=== PATIENT | female | born 1935 | race Caucasian/White ===

== ENCOUNTER 2019-07-27 04:18 | Emergency (ER) | payer MEDICARE ==
[~2019-07-27] VITALS: Ht 162.6 cm; Wt 81.6 kg
[2019-07-27] MEDS ORDERED: SODIUM CHLORIDE 0.9% 1,000 ML IV ONE (06:23)
[2019-07-27 07:14] LABS: Basophils # (auto) 0.1 10 ^3/uL (0-0.2); Basophils % (auto) 0.6 % (0.0-2.0); Eosinophils # (auto) 0 10 ^3/uL (0-0.8); Eosinophils % (auto) 0.4 % (0.0-7.0); Hematocrit 43.5 % (36.0-46.0); Hemoglobin 14.7 g/dL (12.2-16.2); Lymphocytes # (auto) 0.7 10 ^3/uL (0.4-5.4); Lymphocytes % (auto) 6.2 % (10.0-50.0); Mean Corpuscular Hemoglobin 29.1 pg (28.0-32.0); Mean Corpuscular Hgb Conc. 33.8 g/dL (32.0-36.0); Mean Corpuscular Volume 86.1 fL (80.0-100.0); Monocytes # (auto) 0.9 10 ^3/uL (0-1.3); Monocytes % (auto) 8.5 % (0.0-12.0); Neutrophils % (auto) 84.3 % (37.0-80.0); Nucleated Red Blood Cells % 0.1 %; Platelet Count (auto) 183 10^3/uL (140-450); Red Blood Cells 5.05 10^6/uL (4.0-5.20); Red Cell Distribution Width 14.2 % (11.8-14.3); White Blood Cell 10.7 10^3/uL (4.4-10.8)
[2019-07-27 07:37] LABS: Alanine Aminotransferase 58 U/L (13-56); Albumin 3.8 g/dL (3.4-5.0); Anion Gap 8 (5-15); Aspartate Aminotransferase 30 U/L (15-37); BUN/Creatinine Ratio 14.6; Blood Urea Nitrogen 14 mg/dL (7-18); Calcium 9.2 mg/dL (8.5-10.1); Carbon Dioxide 25 mmol/L (21-32); Chloride 103 mmol/L (98-107); GFR African American 71 mL/min; GFR Non-African American 59 mL/min; Glucose 197 mg/dL (74-106); Potassium 3.9 mmol/L (3.5-5.1); Sodium 136 mmol/L (136-145)
[2019-07-27 07:42] LABS: Alkaline Phosphatase 135 U/L (45-117); Bilirubin, Total 0.8 mg/dL (0.2-1.0); Total Protein 7.3 g/dL (6.4-8.2)
[2019-07-27 09:00] VITALS: BP 132/70
== END 2019-07-27 10:38 | disposition home or self-care (01) ==
LOC: EDBD 04:18 → ER 04:21
DX: K56.7 Ileus, unspecified (principal); F03.90 Unspecified dementia, unspecified severity, without behavioral disturbance, psychotic disturbance, mood disturbance, and anxiety; E11.9 Type 2 diabetes mellitus without complications; K21.9 Gastro-esophageal reflux disease without esophagitis; E78.5 Hyperlipidemia, unspecified; I10 Essential (primary) hypertension; R19.7 Diarrhea, unspecified
CPT/HCPCS: 36415; 70450; 71045; 74176; 80053; 84484; 85025; 93005; 96360; 96361; 99285; J7030

== ENCOUNTER 2019-10-03 00:22 | Emergency (ER) | payer MEDICARE ==
[~2019-10-03] VITALS: Ht 167.6 cm; Wt 68.0 kg
[2019-10-03 04:49] VITALS: BP 147/88
== END 2019-10-03 04:51 | disposition home or self-care (01) ==
LOC: ER 00:22 → EDBD 00:22 → ER 04:51
DX: S63.501A Unspecified sprain of right wrist, initial encounter (principal); S09.8XXA Other specified injuries of head, initial encounter; M54.5 Low back pain; W01.0XXA Fall on same level from slipping, tripping and stumbling without subsequent striking against object, initial encounter; Y93.89 Activity, other specified; Y92.89 Other specified places as the place of occurrence of the external cause; Y99.8 Other external cause status
CPT/HCPCS: 70450; 71250; 72125; 73100; 73120; 74176